=== PATIENT | female | born 1940 | race Caucasian/White ===

== ENCOUNTER → 2023-12-15 06:19 | Outpatient (REF) | payer MEDICARE, OTHER, SELFPAY ==
[2023-12-15 07:22] LABS: Erythrocyte Sed Rate 2 mm/hour (0-20)
[2023-12-15 07:29] LABS: C-Reactive Protein < 5.00 mg/L (0.0-10.00)
[2023-12-15 08:08] LABS: TSH Reflex To Free T4 1.16 uIU/ml (0.47-4.68)
[2023-12-15 08:43] LABS: Folate > 20.0 ng/ml (2.76-20); Vitamin B12 > 1000 pg/ml (239-931)
[2023-12-17 14:16] LABS: ds-DNA Ab, IgG Reflex To Titer 5 IU (0-24)
[2023-12-17 23:56] LABS: T. pallidum Ab By TP-PA Non Reactive (Non Reactive)
== END ==
LOC: REG 06:19
PROVIDERS: ATTENDING PHYSICIAN Psychiatry & Neurology Neurology; FAMILY PHYSICIAN Internal Medicine
DX: R20.9 Unspecified disturbances of skin sensation (principal)
CPT/HCPCS: 36415; 82607; 82746; 84443; 85652; 86140; 86225; 86780

== ENCOUNTER → 2024-01-05 10:45 | Outpatient (REF) | payer MEDICARE, OTHER, SELFPAY | LOC: RAD 10:45 | PROVIDERS: ATTENDING PHYSICIAN Psychiatry & Neurology Neurology; FAMILY PHYSICIAN Internal Medicine | DX: I63.9 Cerebral infarction, unspecified (principal); I87.2 Venous insufficiency (chronic) (peripheral) | CPT/HCPCS: 93970 ==

== ENCOUNTER → 2024-01-29 07:12 | Outpatient (REF) | payer MEDICARE, OTHER, SELFPAY ==
[2024-01-29 08:48] LABS: % Basophils 0.7 % (0-2); % Immature Granulocytes 0.3 % (0-0.5); % Lymphocytes 26.4 % (20.5-51.1); % Neutrophils 58.6 % (42.2-75.2); Absolute Basophils 0.1 10^3/uL (0-0.2); Absolute Eosinophils 0.3 10^3/uL (0-0.7); Absolute Lymphocytes 1.8 10^3/uL (1.2-3.4); Absolute Monocytes 0.6 10^3/uL (0.1-0.6); Hematocrit 37.9 % (37.0-47.0); Hemoglobin 11.7 g/dL (12.0-16.0); Mean Corp Hgb Conc. 30.9 g/dL (33.0-37.0); Mean Corpuscular Volume 84.2 fL (81.0-99.0); Nucleated Red Blood Cells % 0 %; Platelet Count 251 10^3/uL (130-400); Red Cell Dist. Width 14.3 % (11.5-14.5); White Blood Cell Count 6.8 10^3/uL (4.8-10.8)
[2024-01-29 09:43] LABS: ALT (SGPT) 19 U/L (0-35); AST (SGOT) 28 U/L (14-36); Albumin 4.2 g/dl (3.5-5.0); Alkaline Phosphatase 96 U/L (38-126); Blood Urea Nitrogen 38 mg/dl (7-17); Calcium 10.1 mg/dl (8.4-10.2); Carbon Dioxide 24 mmol/L (22-30); Chloride 110 mmol/L (98-107); Glucose 99 mg/dl (70-99); Sodium 138 mmol/L (135-145); Total Bilirubin 0.7 mg/dl (0.2-1.3); Total Cholesterol 167 mg/dl (50-199); Total Protein 6.7 g/dl (6.3-8.2); Triglyceride 91 mg/dl (10-149); Very Low Density Lipoprotein 18 mg/dl (0-30); eGFR 49.86
[2024-01-29 09:51] LABS: TSH Reflex To Free T4 1.27 uIU/ml (0.47-4.68)
[2024-01-29 11:42] LABS: HDL Cholesterol 87 mg/dl; LDL Cholesterol, Calculated 62 mg/dl
== END ==
LOC: REG 07:12
PROVIDERS: ATTENDING PHYSICIAN Internal Medicine
DX: I10 Essential (primary) hypertension (principal); E78.2 Mixed hyperlipidemia; E03.9 Hypothyroidism, unspecified; E56.9 Vitamin deficiency, unspecified
CPT/HCPCS: 36415; 80053; 80061; 84443; 85025

== ENCOUNTER → 2024-03-12 15:45 | Outpatient (REF) | payer MEDICARE, OTHER, SELFPAY ==
[2024-03-12 17:10] LABS: Iron 48 ug/dl (37-170)
[2024-03-12 17:48] LABS: Ferritin 47.3 ng/ml (11.1-264.0)
== END ==
LOC: REG 15:45
PROVIDERS: ATTENDING PHYSICIAN Psychiatry & Neurology Neurology; FAMILY PHYSICIAN Family Medicine
DX: E61.1 Iron deficiency (principal); D64.9 Anemia, unspecified
CPT/HCPCS: 36415; 82728; 83540

== ENCOUNTER 2024-03-15 13:19 | Outpatient (RCR) | payer MEDICARE, OTHER, SELFPAY ==
[2024-03-15 13:52] VITALS: BP 134/54
[2024-03-15] MEDS: INJECTAFER 265 MG IV (14:06)
[2024-03-15 15:10] VITALS: BP 157/61
== END 2024-03-16 08:33 | disposition home or self-care (01) ==
LOC: OID 13:19
PROVIDERS: ATTENDING PHYSICIAN Psychiatry & Neurology Neurology; FAMILY PHYSICIAN Internal Medicine
DX: R20.9 Unspecified disturbances of skin sensation (principal); I63.9 Cerebral infarction, unspecified; R79.0 Abnormal level of blood mineral
CPT/HCPCS: 96365; J1439

== ENCOUNTER → 2024-05-04 06:17 | Outpatient (REF) | payer MEDICARE, OTHER, SELFPAY ==
[2024-05-04 07:17] LABS: % Basophils 0.4 % (0-2); % Immature Granulocytes 1.2 % (0-0.5); % Lymphocytes 21.8 % (20.5-51.1); % Neutrophils 66.6 % (42.2-75.2); Absolute Basophils 0.1 10^3/uL (0-0.2); Absolute Eosinophils 0.2 10^3/uL (0-0.7); Absolute Immature Granulocytes 0.1 10^3/uL (0-0.05); Absolute Lymphocytes 2.6 10^3/uL (1.2-3.4); Absolute Neutrophils 7.9 10^3/uL (1.4-6.5); Hematocrit 49.3 % (37.0-47.0); Hemoglobin 16.4 g/dL (12.0-16.0); Mean Corp Hgb Conc. 33.3 g/dL (33.0-37.0); Mean Corpuscular Hgb 28.2 pg (27.0-31.0); Mean Corpuscular Volume 84.9 fL (81.0-99.0); Mean Platelet Volume 10.3 fL (7.4-10.4); Nucleated Red Blood Cells % 0 %; Platelet Count 203 10^3/uL (130-400); Red Blood Cell Count 5.81 10^6/uL (4.20-5.40); Red Cell Dist. Width 21.7 % (11.5-14.5); White Blood Cell Count 11.8 10^3/uL (4.8-10.8)
[2024-05-04 07:45] LABS: ALT (SGPT) 22 U/L (0-35); AST (SGOT) 27 U/L (14-36); Albumin 4.9 g/dl (3.5-5.0); Alkaline Phosphatase 107 U/L (38-126); Blood Urea Nitrogen 47 mg/dl (7-17); Calcium 10.8 mg/dl (8.4-10.2); Carbon Dioxide 27 mmol/L (22-30); Chloride 103 mmol/L (98-107); Glucose 97 mg/dl (70-99); Iron 185 ug/dl (37-170); Potassium 5.8 mmol/L (3.5-5.1); Sodium 139 mmol/L (135-145); Total Bilirubin 1.7 mg/dl (0.2-1.3); Total Cholesterol 186 mg/dl (50-199); Total Protein 7.7 g/dl (6.3-8.2); Triglyceride 95 mg/dl (10-149); Very Low Density Lipoprotein 19 mg/dl (0-30); eGFR 37.33
[2024-05-04 08:00] LABS: HDL Cholesterol 112 mg/dl; LDL Cholesterol, Calculated 55 mg/dl
== END ==
LOC: REG 06:17
PROVIDERS: ATTENDING PHYSICIAN Nurse Practitioner Family; REFERRING PHYSICIAN Internal Medicine Gastroenterology
DX: M25.559 Pain in unspecified hip (principal); M25.569 Pain in unspecified knee; Z76.89 Persons encountering health services in other specified circumstances; E78.00 Pure hypercholesterolemia, unspecified; E66.1 Drug-induced obesity; Z68.35 Body mass index [BMI] 35.0-35.9, adult; Z86.73 Personal history of transient ischemic attack (TIA), and cerebral infarction without residual deficits; M53.3 Sacrococcygeal disorders, not elsewhere classified; M47.816 Spondylosis without myelopathy or radiculopathy, lumbar region; K21.9 Gastro-esophageal reflux disease without esophagitis; I10 Essential (primary) hypertension; E61.1 Iron deficiency; D64.9 Anemia, unspecified; E55.9 Vitamin D deficiency, unspecified
CPT/HCPCS: 36415; 80053; 80061; 82728; 83540; 84443; 85025

== ENCOUNTER 2024-05-22 17:05 | Inpatient (IN) | payer MEDICARE, OTHER, SELFPAY ==
[2024-05-22] VITALS (8 sets, daily range): BP systolic 116–176; BP diastolic 54–89; BMI 34.5
[2024-05-22 12:51] LABS: % Basophils 0.4 % (0-2); % Eosinophils 3.7 % (0-6); % Immature Granulocytes 0.7 % (0-0.5); % Lymphocytes 27.8 % (20.5-51.1); % Monocytes 8.3 % (1.7-9.3); % Neutrophils 59.1 % (42.2-75.2); Absolute Eosinophils 0.3 10^3/uL (0-0.7); Absolute Immature Granulocytes 0.1 10^3/uL (0-0.05); Absolute Lymphocytes 2.1 10^3/uL (1.2-3.4); Absolute Monocytes 0.6 10^3/uL (0.1-0.6); Absolute Neutrophils 4.5 10^3/uL (1.4-6.5); Hematocrit 39.9 % (37.0-47.0); Hemoglobin 13.5 g/dL (12.0-16.0); Mean Corp Hgb Conc. 33.8 g/dL (33.0-37.0); Mean Corpuscular Hgb 29.1 pg (27.0-31.0); Nucleated Red Blood Cells % 0 %; Platelet Count 194 10^3/uL (130-400); Red Blood Cell Count 4.64 10^6/uL (4.20-5.40); Red Cell Dist. Width 19.9 % (11.5-14.5); White Blood Cell Count 7.6 10^3/uL (4.8-10.8)
[2024-05-22 13:07] LABS: ALT (SGPT) 24 U/L (0-35); AST (SGOT) 27 U/L (14-36); Albumin 3.9 g/dl (3.5-5.0); Alkaline Phosphatase 90 U/L (38-126); Blood Urea Nitrogen 27 mg/dl (7-17); Calcium 9.9 mg/dl (8.4-10.2); Carbon Dioxide 27 mmol/L (22-30); Chloride 106 mmol/L (98-107); Estimated Creatinine Clearance 48 ml/min; Glucose 93 mg/dl (70-99); Sodium 137 mmol/L (135-145); Total Bilirubin 0.8 mg/dl (0.2-1.3); Total Protein 6.2 g/dl (6.3-8.2)
[2024-05-22 13:18] LABS: Troponin I 0.024 ng/ml
--- NOTE | 2024-05-22 14:18 | ED.GENMED ---
History of Present Illness
General
Chief Complaint: Chest Pain
Source: patient
Exam Limitations: none
Time Seen by Provider: 05/22/24 12:40
Nursing documentation reviewed up to this point in time: agreed with
History of Present Illness
History of Present Illness:
The patient is an 83-year-old female with a past medical history of CVA and hyperlipidemia who comes in with complaints of sudden onset of left-sided chest pain while watching a movie at around 11:00 today. Patient denies any radiation of pain into
the back or down the arm. She reports that 911 was called and she was given nitroglycerin and aspirin and now her pain is gone completely. She denies any reproducible chest pain with breathing. She denies leg pain and leg swelling. She denies a
history of PE and DVT. She denies cough. Patient reports she had similar pain 3 evenings ago, in the middle the night, but it went away on its own.
Past History
Past History
ED Past Medical History: GERD, Hypercholesterolemia and Other (herpes simplex on Valcyclovir)
ED Past Surgical History: Appendectomy, Gynecological (hysterectomy), Orthopedic (L5-S1 intralaminar epidural steroids, replacements bilaterally) and Other (uvulectomy)
Social History
Tobacco: Non-smoker
Alcohol: Other
Drug: None
Personal: Other
Living: other
Employment: Other
Family History
Family History: CAD
Review of Systems
Review of Systems
Allergies reviewed?: Yes
All Other Systems: ROS reviewed and negative except as documented in HPI and ROS
Constitutional: Reports no symptoms
EENT: Reports no symptoms
Respiratory: Reports no symptoms
Cardiac: Reports chest pain
ABD/GI: Reports no symptoms
: Reports no symptoms
Musculoskeletal: Reports no symptoms
Skin: Reports no symptoms
Neurological: Reports no symptoms
Endocrine: Reports no symptoms
Hematologic/Lymphatic: Reports no symptoms
Psychiatric: Reports no symptoms
Phy Exam
Physical Exam
Physical Exam:
Physical Exam
General: no apparent distress, not acutely ill, well and comfortable appearing
Neck: supple. no meningeal signs. normal psoterior pharynx
Heart: s1/s2 regular rate and rhythm, no murmur. equal radial pulses.
Lungs: no acute respiratory distress. clear bilaterally
Abdomen: normal bowel sounds. not tender. no CVAT. No pulsatile mass
Neuro: alert and oriented. no focal neurological deficits
Skin: no rash
Psychiatric: well kept. interactive and cooperative
Extremities: no edema. no calf tenderness. negative homans. good distal pulses
Scores
Heart Score for Chest Pain Patients
STEMI patient?: Not applicable
Course
Orders/Labs/Results
Orders:
Orders
05/22/24 12:29
EKG [Electrocardiogram (*1)] Stat
Reason for Study: Chest Pain
EKG- Treatment ONCE
05/22/24 12:44
Complete Blood Count/With Diff Urgent
Comprehensive Metabolic Panel Urgent
Troponin I Urgent
05/22/24 14:45
Troponin I Urgent
05/22/24 Dinner
Cholesterol Lowering
At Your Request: Full Participation
Cholesterol Lowering: Sodium, 2 Gram
05/22/24 15:39
Aspirin Chewable [Low Strength Aspirin] 324 mg PO NOW STA
Nitroglycerin Ointment [Nitro-Bid] 0.5 inch TOPICAL NOW STA
05/22/24 16:24
CARDIOLOGY CONSULT Routine
Consulting Provider: Srinivas Correa
Was physician already notified: Yes
Reason for consult: acs elevated trop
05/22/24 16:25
Heparin 4,000 units IV NOW STA
Metoprolol Xl [Toprol Xl] 25 mg PO NOW STA
05/22/24 16:26
Admit/Transfer Patient As Directed
Co-Sign Provider:
Level of Care: Inpatient admission
Assign to:: IVU
Physician / Group: shaina burns
Diagnosis: cp concern acs
Reason for Hospitalization: cp concern acs
Expected length of stay greater than two midnights?: Yes
ELOS- Estimated Length of Stay in days: 4
I certify the patient meets the requirements for IP care: Yes
Code Status As Directed
Resuscitation Status: Full Code
05/22/24 16:30
Heparin 46922 Units/250 ml 25,000 units in 250 ml IV PER PROTOCOL
Weight to be used for heparin protocol in kilograms (kg):: 94
Protocol:: Cardiac Tx/Acute Coronary
PTT Goal Range to be used:: PTT 73 to 111 seconds
Order type:: Initial
INITIAL Infusion Dose (UNITS/KG/hr) & then follow protocol:: 12 units/kg/hr
Infusion Dose in UNITS/hr & then follow protocol (UNITS/hr):: 1,000
INFUSION RATE in mL/hr & then follow protocol (mL/hr):: 10
PTT less than or equal to 64 seconds:: Increase rate by 200 units/hr (+ 2 mL/hr)
PTT 64.1 to 72.9 seconds:: Increase rate by 100 units/hr (+ 1 mL/hr)
PTT 73 to 111 seconds:: Target Range. No change in rate.
PTT 111.1 to 130.9 seconds:: Decrease rate by 100 units/hr (- 1 mL/hr)
PTT 131 to 199.9 seconds:: HOLD for 1 hr. Then decrease rate by 200 units/hr (- 2 mL/hr)
PTT greater than or equal to 200 seconds:: HOLD for 2 hrs & Notify Provider. Then decrease by 200 units/hr (-
2 mL/hr)
Lab follow-up:: Each change, PTT q6h until 2 consecutive are therapeutic. Then PTT
daily.
PRN Pain Medication Management As Directed
May give lesser potent ordered pain med per pt: Yes
preference::
Protocol:: Medication orders for pain may be administered in a
manner that supports deferring to patient preference
when the pt is:
- Requesting an ordered lesser potent pain medication.
Least to most potent pain medications are defined
as: acetaminophen < NSAID < tramadol < opioids
(morphine, oxycodone, hydromorphone).
- Requesting a lesser dose of the same medication IF
ORDERED.
- Requesting a less intrusive route of administration
if both routes are prescribed by the provider (PO <
IV).
05/22/24 16:45
Complete Blood Count/No Diff Urgent
Comment: Obtain baseline before beginning heparin infusion if not already collected
PTT Urgent
Comment: Obtain baseline before beginning heparin infusion if not already collected
05/22/24 18:44
Acetaminophen [Tylenol] 650 mg PO Q4HPRN PRN
05/22/24 18:44
VTE Contraindication Routine
VTE Mechanical Device Contraindication: Medical Contraindication
Pharmocologic Contraindication: Medical Contraindication
Comment: pt on iv heparin
Activity As Directed
Activity Level: As Tolerated
Intake/ Output As Directed
Frequency: Per unit guidelines
Vital Signs As Directed
Frequency: Per unit guidelines
Weight As Directed
Frequency: Daily
Ot Eval And Treat Routine
Pt Eval And Treat Routine
Activity Level: As Tolerated
05/22/24 19:00
Rosuvastatin Calcium [Crestor] 20 mg PO QPM
05/22/24 20:30
EKG [Electrocardiogram (*1)] Urgent
Reason for Study: Chest Pain
Other Reason for Exam: hx elevated troponin
05/22/24 22:14
Troponin I Q6H
05/23/24 03:00
EKG [Electrocardiogram (*1)] Urgent
Reason for Study: Chest Pain
Other Reason for Exam: elevated trop
05/23/24 04:30
Cardiovascular Evaluation IN AM
Complete Blood Count/With Diff IN AM
Comprehensive Metabolic Panel IN AM
Magnesium IN AM
Troponin I Q6H
05/23/24 08:00
Aspirin Low Dose EC [Aspir Low (Enteric Coated)] 81 mg PO DAILY
Metoprolol Xl [Toprol Xl] 25 mg PO DAILY
Pantoprazole [Protonix] 40 mg PO DAILY
05/24/24 04:32
Complete Blood Count/With Diff IN AM
Comprehensive Metabolic Panel IN AM
05/25/24 06:00
Complete Blood Count/With Diff IN AM
Comprehensive Metabolic Panel IN AM
Abnormal Lab Results
05/22/24 05/22/24 05/22/24
12:44 14:45 16:45
RDW 19.9 H % 19.7 H %
(11.5-14.5) (11.5-14.5)
Abs Immat Gran (auto) 0.1 H 10^3/uL
(0-0.05)
Immature Gran % 0.7 H %
(0-0.5)
BUN 27 H mg/dl
(7-17)
Troponin I 0.075 H* D ng/ml
Total Protein 6.2 L g/dl
(6.3-8.2)
05/22/24 16:45
05/22/24 12:44
Vital Signs
Initial and Last Documented VS:
Initial Vital Signs
Temp Pulse Resp Pulse Ox
98.0 F 77 18 96
05/22/24 12:34 05/22/24 12:34 05/22/24 12:34 05/22/24 12:34
Last Documented Vital Signs
Temp Pulse Resp BP Pulse Ox
98.2 F 66 16 155/69 98
05/24/24 23:15 05/24/24 23:15 05/24/24 23:15 05/24/24 23:15 05/24/24 23:15
MDM/Problems Addressed
Differential Diagnosis Includes:
Acute coronary disease, PE, aortic dissection, GERD
MDM/Problems Addressed:
Patient complains of acute chest pain
Chronic conditions affecting care:
Hyperlipidemia
Acute Exacerbation and/or Progression of Chronic Illness:
Hyperlipidemia
*Pulse Oximetry
Patient hypoxic: no
*EKG
Interpreted by ED Provider?: Yes
Interpretation: normal
Comparison EKG: no changes
Rate: normal
[place]: normal axis
Interval: normal interval
QRS Pattern: normal QRS
Ischemia: no ischemia
*Educational Administrator Interpretation
Rate: normal
Interpretation: normal
Rhythm: sinus
*Critical Care Note
Total Time (30-74mins, 75-104mins- exclusive of procedures): Not Applicable
ED Attending Note
-
Portions of this chart may have been created with voice recognition software.� Occasional wrong word or��sound alike� substitutions may have occurred due to the inherent limitations of voice recognition software.
Discharge Plan
Departure
Patient Disposition: Admit
Date of Disposition: 05/22/24
Time of Disposition: 15:33
Admit to: Telemetry
Presentation/result/management discussed w/ accepting MD/DO: Hospitalist
Patient with high blood pressure during this ER visit?: Yes
Condition: Good
Discharge Problem:
Chest pain in adult, Elevated troponin
Interventions
Interventions:
*Risk Screen - Suicide Last Done: 05/22/24 12:36
*General Assessment Last Done: 05/22/24 12:34
*Neglect/Abuse Screening Last Done: 05/22/24 12:36
ED- Fall Risk Assessment Last Done: 05/22/24 12:38
*ED COVID-19 Vaccine History Last Done: 05/22/24 12:34
*Nursing Disposition Last Done: 05/22/24 18:25
ED- Cardiac Assessment Last Done: 05/22/24 12:37
Discharge Date and Time
Discharge Date/Time: 05/22/24 18:26
[2024-05-22 15:34] LABS: Troponin I 0.075 ng/ml
--- NOTE | 2024-05-22 15:50 | HPS.HSE ---
Addendum entered and electronically signed by Mora Vasquez MD 05/22/24 17:19:
I saw and examined the patient.
The PRIME BROKER or PA's note was reviewed and I agree with the note.
Comment:
83F from [facility] past medical history HLD GERD aortic regurg, L5-S1 epidural injections, obesity p/w chest pain left side that started suddenly while pt was at rest watching TV. Pt had a similar episode a few days ago that
eventually resolved w/ spontaneously. Contacted EMS, pt was treated w/ ASA nitro en route, chest pain subsequently resolved. Mildly hypertensive vital signs otherwise stable. EKG NSR. Troponin trended up 0.075. Pt has family hx heart disease w/
both parents passing in their late 70s to early 80s as a result.
Physical Exam
General: No pallor, cyanosis, or jaundice.
HEENT: Throat clear. PERRLA Normocephalic atraumatic
NECK: Supple. No JVD Carotid Bruits
RESPIRATORY: Lungs clear to auscultation. No crackles wheezes stridor
CVS: S1, S2 normal. RRR. No murmur, rub or gallop.
ABDOMEN: Soft, non-tender. No distension. BS+/normal.
EXTREMITIES: No peripheral cyanosis or edema.
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 No focal deficits.
#Chest Pain Possible ACS
IVU admit
Cardio eval
hep gtt
metoprolol
trend troponin
Original Note:
Family Physician
-
Family Physician: MAJOR Jarrett
Chief Complaint
-
left sided cp
History of Present Illness
83-year-old female from home who states while watching a movie at 11 PM today she did had sudden onset of left-sided Under her left breast type in nature chest pain but denies any radiation or diaphoresis. She reports she was given nitroglycerin
and aspirin by EMS with resolution of her chest pain. She does report having a similar episode 3 evenings ago in the middle of the night that went away After taking 325 mg of aspirin. She denies current chest pain, headache, sore throat, fever,
chills, shortness of breath, cough, abdominal pain, nausea, vomiting, diarrhea, urinary symptoms. She has past medical history of HLD, GERD, aortic regurg cardiac murmur herpes simplex in past on valacyclovir, L5-S1 epidural injections, obesity
Medical History
Past Medical History
Past Medical History: Reports Other
Additional Past Medical History:
HLD
GERD
aortic regurg cardiac murmur
herpes simplex on valacyclovir,
L5-S1 epidural injections
obesity
Past Surgical History: Reports Other
Additional Past Surgical History:
Uvulectomy,
Appendectomy
L5-S1 epidural injections
Social History
Tobacco: Non-smoker
Alcohol: Occasional (1 martini 3 times week)
Drug: None
Personal: Single
Living: Alone
Employment: Retired
Family History
Family History: Other (mother cad during cabg age 81, father copd, cad age 72 brother age 51? cardiac rare cancer)
Allergies / Home Medications
Allergies reflects when Allergies were last updated in [employer].
Home Medications with original date entered in [employer]
Allergy/Medication List:
Allergies
Allergy/AdvReac Type Severity Reaction Status Date / Time
adhesive Allergy Rash Verified 03/15/24 14:10
latex Allergy Rash Verified 03/15/24 14:10
penicillin V Allergy Rash - 10 Verified 03/15/24 14:10
years ago
Penicillins Allergy Rash - 10 Verified 03/15/24 14:10
years ago
Home Medications
omeprazole 40 mg capsule,delayed release 40 mg PO DAILY 09/15/15
cholecalciferol (vitamin D3) 25 mcg (1,000 unit) tablet 1,000 units PO DAILY 08/31/19
zinc sulfate 50 mg zinc (220 mg) capsule 220 mg PO DAILY 08/31/19
alirocumab 75 mg/mL subcutaneous pen injector (Praluent Pen) 75 mg SC Q14D #1 mL 06/04/22
polyethylene glycol 3350 17 gram oral powder packet 17 grams PO HS ##1 06/04/22
ascorbic acid (vitamin C) 500 mg tablet (Vitamin C) 500 mg PO DAILY 03/15/24
ashwagandha extract 120 mg capsule 120 mg PO 03/15/24
docusate sodium 100 mg capsule 100 mg PO BID PRN Constipation 03/15/24
vitamin B complex 1 cap PO DAILY 03/15/24
Review of Systems
-
History Source: Patient
A 12 point ROS was completed and negative except as noted: Yes
Constitutional: Denies Fever, Fatigue or Chills
EENT: Denies Sore Throat or Runny Nose
Respiratory: Denies Cough or Trouble Breathing
Cardiac: Reports Chest Pain (under left breast); Denies Diaphoresis, Palpitations or Syncope
Abdomen/GI: Denies Abdominal Pain, Nausea, Vomiting, Diarrhea, Constipated, Bloody Stools or Black Stools
: Denies Dysuria, Frequency, Flank Pain, Incontinence, Difficulty Voiding or Urgency
Musculoskeletal: Denies Joint Pain or Edema
Skin: Reports Other (chronic skin scab from skin bx in february by derm was neg for cancer, chronic vericose veins); Denies Itching or Rash
Neurological: Denies Dizzy, Headache or Weakness
Endocrine: Reports No Symptoms
Hematologic/Lymphatic: Reports No Symptoms
Psych: Reports Calm
Physical Exam
Vital Signs
Vital Signs
Temp Pulse Resp BP Pulse Ox
98.0 F 72 18 165/80 94
05/22/24 12:34 05/22/24 14:30 05/22/24 12:34 05/22/24 14:00 05/22/24 14:30
Physical Exam
General: Comfortable, Conversant and Obese; No Pain or Fever
HEENT: NormoCephalic, Anicteric, Moist mucous membranes, [place] Conjunctivae and No Ptosis
Respiratory: Clear; No Wheezes, Rales or Rhonchi
Cardiac: S1/S2 and Murmur (2/6 systolic); No Rub, Gallop or Peripheral Edema
GI: Soft, Non Tender, Non Distended, Normal Bowel Sounds and No Hepatosplenomegaly
Rectal: Deferred by Provider
Genito-urinary: Deferred by me
Musculoskeletal: No Clubbing, No Cyanosis and No Edema
Skin: Ulcers (chronic skin scab from skin bx in february by derm was neg for cancer, chronic vericose veins)
Neuro: AO x 3, No Motor Deficits, Nonfocal/grossly intact, Cranial Nerves Intact and No Sensory Deficits; No Slurred Speech, Facial Droop or Tremors
Psych: Calm
Laboratory Results
-
05/22/24 12:44
05/22/24 12:44
Laboratory Results
Total Bilirubin 0.8 mg/dl (0.2-1.3) 05/22/24 12:44
AST 27 U/L (14-36) 05/22/24 12:44
ALT 24 U/L (0-35) 05/22/24 12:44
Alkaline Phosphatase 90 U/L (38-126) 05/22/24 12:44
Troponin I 0.075 ng/ml H* D 05/22/24 14:45
Impression/Plan
-
Impression/plan:
Inpatient IVU
# CP concern ACS
-Troponin 0.075, will trend troponins and EKG
-Patient given nitroglycerin and aspirin with resolution of chest pain by EMS
-Consult [facility] cardiology- discussesd with Dr segovia
-Add aspirin 81 mg daily
- start iv Heparin gtt
-start Metoprolol XL 25 mg daily
- start Crestor 20 mg hs -Hx of leg cramps with Lipitor
EKG: NSR 79 bpm, QTc 426 MS otherwise normal
2D echo 05/30/2022: EF 55 to 60%, mild septal hypertrophy, no wall abnormalities, mild aortic regurg no significant change from August 2019
#Known cardiac murmur hx aortic regurg
- check 2D echo
#GERD
-Continue omeprazole 40 mg daily
#HLD
Check lipid profile
Patient takes Praluent pen 75 mg subcu q. 14 days and krill oil
#Hx of skin bx right leg may benign with chronic scab likley delayed healing vasc disease / vericose veins
bx done by Dr clemente
- will apply bacitracin bid with bandaid
#Obesity due to excess calorie consumption - bmi 34.5
affects all aspects care
wt loss recommended with low fat diet
dvt proph
Iv heparin gtt
Full code donny Nobles is her emergency contact
[2024-05-22 16:58] LABS: Hematocrit 38.7 % (37.0-47.0); Hemoglobin 13.2 g/dL (12.0-16.0); Mean Corp Hgb Conc. 34.1 g/dL (33.0-37.0); Mean Corpuscular Hgb 29.9 pg (27.0-31.0); Mean Corpuscular Volume 87.8 fL (81.0-99.0); Mean Platelet Volume 10.3 fL (7.4-10.4); Platelet Count 179 10^3/uL (130-400); Red Blood Cell Count 4.41 10^6/uL (4.20-5.40); Red Cell Dist. Width 19.7 % (11.5-14.5)
[2024-05-22] MEDS: HEPARIN 4000 UNITS IV (17:02)
[2024-05-22] MEDS: HEPARIN 25000 UNITS/250 ML IV (17:04)
[2024-05-22] MEDS: TOPROL XL 25 MG PO (17:04)
[2024-05-22 17:08] LABS: APTT 27.8 Sec (23.4-35.0)
[2024-05-22] MEDS: CRESTOR 20 MG PO (21:55)
[2024-05-22] MEDS: MIRALAX 17 GRAMS PO (21:55)
[2024-05-22 22:44] LABS: Troponin I 0.188 ng/ml
[2024-05-23] VITALS (9 sets, daily range): BP systolic 103–159; BP diastolic 62–87; PULSE 79; BMI 34.2
--- NOTE | 2024-05-23 00:21 | PTCARENOTE ---
Pt arrived at change of shift- ambulating into room as a self. admission and assessment completed as documented. POC discussed- pt verbalized understanding. Heparin gtt running as documented. SR w/1st degree on monitor. HR in the 60s to 90s. No CP
complaints at this time.
[2024-05-23 04:48] LABS: % Basophils 0.3 % (0-2); % Eosinophils 4.7 % (0-6); % Immature Granulocytes 0.8 % (0-0.5); % Lymphocytes 39.1 % (20.5-51.1); % Monocytes 9.1 % (1.7-9.3); Absolute Eosinophils 0.3 10^3/uL (0-0.7); Absolute Immature Granulocytes 0.1 10^3/uL (0-0.05); Absolute Lymphocytes 2.3 10^3/uL (1.2-3.4); Absolute Monocytes 0.5 10^3/uL (0.1-0.6); Absolute Neutrophils 2.7 10^3/uL (1.4-6.5); Hematocrit 37.5 % (37.0-47.0); Mean Corp Hgb Conc. 34.7 g/dL (33.0-37.0); Mean Corpuscular Hgb 29.1 pg (27.0-31.0); Mean Corpuscular Volume 83.9 fL (81.0-99.0); Nucleated Red Blood Cells % 0 %; Platelet Count 172 10^3/uL (130-400); Red Blood Cell Count 4.47 10^6/uL (4.20-5.40); Red Cell Dist. Width 19.9 % (11.5-14.5)
[2024-05-23 05:03] LABS: APTT 84.4 Sec (23.4-35.0)
[2024-05-23 05:14] LABS: ALT (SGPT) 24 U/L (0-35); AST (SGOT) 27 U/L (14-36); Albumin 3.6 g/dl (3.5-5.0); Alkaline Phosphatase 80 U/L (38-126); Blood Urea Nitrogen 20 mg/dl (7-17); Calcium 9.8 mg/dl (8.4-10.2); Carbon Dioxide 25 mmol/L (22-30); Chloride 109 mmol/L (98-107); Estimated Creatinine Clearance 54 ml/min; Glucose 90 mg/dl (70-99); HDL Cholesterol 99 mg/dl; LDL Cholesterol, Calculated 47 mg/dl; Magnesium 2.1 mg/dl (1.6-2.3); Sodium 137 mmol/L (135-145); Total Bilirubin 0.9 mg/dl (0.2-1.3); Total Cholesterol 159 mg/dl (50-199); Total Protein 5.9 g/dl (6.3-8.2); Triglyceride 65 mg/dl (10-149); Very Low Density Lipoprotein 13 mg/dl (0-30); eGFR > 60.00
[2024-05-23 05:28] LABS: Troponin I 0.136 ng/ml
--- NOTE | 2024-05-23 07:53 | W.PN.HOSP.TC ---
Today's Communication/Plan
-
Hep gtt ASA statin Metoprolol
NPO after midnight for Cath
ECHO Mon
Assessment / Plan
Assessment / Plan
Physical Exam
General: No pallor, cyanosis, or jaundice.
HEENT: Throat clear. PERRLA Normocephalic atraumatic
NECK: Supple. No JVD Carotid Bruits
RESPIRATORY: Lungs clear to auscultation. No crackles wheezes stridor
CVS: S1, S2 normal. RRR. No murmur, rub or gallop.
ABDOMEN: Soft, non-tender. No distension. BS+/normal.
EXTREMITIES: No peripheral cyanosis or edema.
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 No focal deficits.
83F from [facility] past medical history HLD GERD aortic regurg, L5-S1 epidural injections, obesity p/w chest pain left side that started suddenly while pt was at rest watching TV. Pt had a similar episode a few days ago that
eventually resolved w/ spontaneously. Contacted EMS, pt was treated w/ ASA nitro en route, chest pain subsequently resolved. Mildly hypertensive vital signs otherwise stable. EKG NSR. Troponin trended up 0.075. Pt has family hx heart disease w/
both parents passing in their late 70s to early 80s as a result.
# CP concern ACS
#Known cardiac murmur hx aortic regurg
-Troponin trended to Peak 0.188
-Patient given nitroglycerin and aspirin with resolution of chest pain by EMS
-Cardio eval appreciated cont aspirin, Heparin gtt, Metoprolol, statin, NPO after midnight for Cath Mon 05/24
-ECHO pending
#GERD
-Continue PPI
#HLD
Lipid panel appreciated LDL at goal <70
cont Crestor (hx leg cramps w/ Lipitor
Patient takes Praluent pen 75 mg subcu q. 14 days and krill oil
#Obesity due to excess calorie consumption - bmi 34.5
affects all aspects care
wt loss recommended with low fat diet
dvt proph
Iv heparin gtt
Full Code
I spent a total of 50 minutes with the patient or on the floor. More than 50% of this time involved counseling and coordination of care.
Anticipated Discharge: 24 - 48 hours
Subjective/Interval History
-
Date of Service: May 23, 2024
Seen and examined at bedside in no acute distress sitting up comfortably in chair. Reports overall feeling well. Chest pain since resolved. Denies new acute issues at this time.
Objective Data
-
Labs:
Laboratory Results
05/22/24 05/23/24
22:14 04:30
WBC 6.0
Hgb 13.0
Hct 37.5
Plt Count 172
APTT 91.0 H 84.4 H
Sodium 137
Potassium 4.0
Chloride 109 H
Carbon Dioxide 25
BUN 20 H
Creatinine 0.9
Glucose 90
Calcium 9.8
Total Bilirubin 0.9
AST 27
ALT 24
Alkaline Phosphatase 80
Vital Signs:
Vital Signs
Temp Pulse Resp BP Pulse Ox
98.5 F 65 18 152/74 95
05/23/24 04:31 05/23/24 05:00 05/23/24 04:31 05/23/24 04:27 05/23/24 04:31
--- NOTE | 2024-05-23 08:37 | CON.CAR ---
Addendum entered and electronically signed by Srinivas Correa MD 05/23/24 14:30:
I personally performed a history and physical exam of the patient and discussed management with the resident. I reviewed the resident's note and agree with the documented findings and plan of care HPI/CC.
Briefly, 83-year-old woman with past medical history of hyperlipidemia who presents with chest discomfort found to have elevated troponin consistent with NSTEMI
Patient tells me she was watching a movie on the morning of 810 at her independent living facility when she developed left-sided squeezing type chest discomfort
EMS was called and provided aspirin and sublingual nitroglycerin and her chest discomfort resolved
Initial troponin was undetectable at the emergency department however it did rise and peaked at 0.188
No ischemic changes on serial ECGs
Patient is resting comfortably in the IVU, chest pain-free and hemodynamically stable
Physical exam is unremarkable
Maintaining normal sinus rhythm on telemetry
Continue medical management of ACS with aspirin, high intensity statin, beta-matt and heparin drip
Check transthoracic echocardiogram on Friday
Tentative plan for invasive coronary angiography on 05/24/2024
Original Note:
Consultation
Consultation Request
Date/Time Consultation Requested: 05/23/24
Date/Time Consultation Performed: 05/23/24
Requesting Provider: Maryellen GONSALVES
Performing Provider:
Medical History
-
Chief Complaint: Chest pain
History of Present Illness:
This is a 83 female patient coming from [facility] with PMH of HLD, GERD, aortic regurgitation murmur, HSV presented to the ED with complaints of chest pain that she describes as squeezing in the left side and occurred at rest
while she was watching TV late yesterday morning. This was nonradiating. This pain continued until she was given nitroglycerin and aspirin by EMS. She had a similar episode a few days ago that resolved after she took aspirin. She denies any
palpitations. On admission her EKG showed NSR and troponins were elevated to 0.075.
Past Medical History
Past Medical History: GERD, Hypercholesterolemia and Other (Aortic regurgitation murmur, HSV)
Past Surgical History: Appendectomy and Other (Uvulectomy, L5-S1 epidural injections)
Social History
Tobacco: Non-Smoker
Alcohol: Occasional
Personal: Single
Living: Alone
Employment: Retired
Family History
Family History: Other (mother cad during cabg age 81,father cad age 72)
Allergies / Home Medications
Allergy/AdvReac Type Severity Reaction Status Date / Time
adhesive Allergy Rash Verified 03/15/24 14:10
latex Allergy Rash Verified 03/15/24 14:10
penicillin V Allergy Rash - 10 Verified 03/15/24 14:10
years ago
Penicillins Allergy Rash - 10 Verified 03/15/24 14:10
years ago
�Medication �Instructions �Recorded �Confirmed �Type
omeprazole 40 mg capsule,delayed 40 mg PO DAILY 09/15/15 05/22/24 History
release
cholecalciferol (vitamin D3) 25 1,000 units PO DAILY 08/31/19 05/22/24 History
mcg (1,000 unit) tablet
zinc sulfate 50 mg zinc (220 mg) 220 mg PO DAILY 08/31/19 05/22/24 History
capsule
alirocumab 75 mg/mL subcutaneous 75 mg SC Q14D #1 mL 06/04/22 05/22/24 Rx
pen injector (Praluent Pen)
polyethylene glycol 3350 17 gram 17 grams PO HS ##1 06/04/22 05/22/24 Rx
oral powder packet
ascorbic acid (vitamin C) 500 mg 500 mg PO DAILY 03/15/24 05/22/24 History
tablet (Vitamin C)
docusate sodium 100 mg capsule 100 mg PO BID PRN Constipation 03/15/24 05/22/24 History
vitamin B complex 1 cap PO DAILY 03/15/24 05/22/24 History
krill [id number]-dha-epa 45 mg-45 1 cap PO 05/22/24 History
mg capsule
loratadine 10 mg tablet (Claritin) 10 mg PO DAILY PRN seasonal 05/22/24 05/22/24 History
allergies
magnesium oxide 140 mg capsule 1 mg PO 05/22/24 History
Review of Systems
-
Constitutional: No Symptoms
Respiratory: No Symptoms
Cardiac: No Symptoms
Neurological: No Symptoms
Physical Exam
Vital Signs
Temp Pulse Resp BP Pulse Ox
98.5 F 65 18 152/74 95
05/23/24 04:31 05/23/24 05:00 05/23/24 04:31 05/23/24 04:27 05/23/24 04:31
Lab Results
05/23/24 04:30
05/23/24 04:30
Troponin I 0.136 ng/ml H* D 05/23/24 04:30
Physical Exam
General: No Apparent Distress
HEENT: Normocephalic
Respiratory: Clear
Cardiac: S1/S2 and Regular Rhythm
GI: Soft, Non Tender and Non Distended
Skin: Warm and Dry
Neuro: Awake, Alert and Oriented
Psych: Calm
Impression / Plan
-
Training Representative: Dr. Maria
Impression: is a 83 female patient coming from [facility] independent living with PMH of HLD, GERD, aortic regurgitation murmur, HSV presented to the ED with complaints of chest pain that she describes as squeezing in the left side and occurred at
rest while she was watching TV late at night. This was nonradiating. This pain continued until she was given nitroglycerin and aspirin by EMS. She had a similar episode a few days ago that resolved after she took aspirin. She denies any
palpitations. On admission her EKG showed NSR and troponins were elevated to 0.075.
Assessment:
ACS
Hx aortic regurgitation murmur
GERD
HLD
Echo on 08/2019: LVEF 65%, normal left ventricular wall thickness. Mild aortic regurgitation. Trace tricuspid regurgitation. Right heart pressures could not be determined.
Echo on 05/2022: LVEF 55-60%, normal left ventricular size and systolic function. Mild septal hypertrophy. Thickened, trileaflet aortic valve with adequate leaflet excursion. Mild aortic regurgitation. Estimated pulmonary artery pressure of 35 mmHg
assuming a right atrial pressure of 3 mmHg.
Plan:
� EKG on adm: NSR
- Currently asymptomatic
� Troponin on adm: 0.075-->0.188-->0.136
� Echo ordered and pending for tomorrow
- Pro-BNP and CXR ordered
� Continue ASA, metoprolol 25mg, and Crestor 20mg
- Cath planned for tomorrow
[2024-05-23] MEDS: TOPROL XL 25 MG PO (08:42)
[2024-05-23] MEDS: ASPIR LOW (ENTERIC COATED) 81 MG PO (08:43)
[2024-05-23] MEDS: PROTONIX 40 MG PO (08:43)
[2024-05-23 12:39] LABS: NT-proBNP 319 pg/ml
[2024-05-23] MEDS: HEPARIN 25000 UNITS/250 ML IV (16:41)
[2024-05-23] MEDS: CRESTOR 20 MG PO (17:51)
[2024-05-23] MEDS: MIRALAX 17 GRAMS PO (22:15)
[2024-05-24] VITALS (12 sets, daily range): BP systolic 106–168; BP diastolic 65–132; BMI 33.4
--- NOTE | 2024-05-24 04:21 | PTCARENOTE ---
Rec'd pt at change of shift. Pt on TELE monitor in NSR and VSS. Pt NPO at midnight for heart cath in AM. Pt currently CP free and agreed to report change in CP status to RN immediately. Pt currently has heparin infusion at 1000 units per hour.
Pt resting with call mark in reach.
[2024-05-24] MEDS: TYLENOL 650 MG PO (04:27)
[2024-05-24 04:49] LABS: % Basophils 0.5 % (0-2); % Eosinophils 3.9 % (0-6); % Immature Granulocytes 0.8 % (0-0.5); % Lymphocytes 37.5 % (20.5-51.1); % Monocytes 10.3 % (1.7-9.3); Absolute Eosinophils 0.3 10^3/uL (0-0.7); Absolute Immature Granulocytes 0.1 10^3/uL (0-0.05); Absolute Lymphocytes 2.4 10^3/uL (1.2-3.4); Absolute Monocytes 0.7 10^3/uL (0.1-0.6); Hematocrit 44.1 % (37.0-47.0); Hemoglobin 14.8 g/dL (12.0-16.0); Mean Corp Hgb Conc. 33.6 g/dL (33.0-37.0); Mean Corpuscular Hgb 29.4 pg (27.0-31.0); Mean Corpuscular Volume 87.7 fL (81.0-99.0); Mean Platelet Volume 9.8 fL (7.4-10.4); Nucleated Red Blood Cells % 0 %; Platelet Count 182 10^3/uL (130-400); Red Blood Cell Count 5.03 10^6/uL (4.20-5.40); Red Cell Dist. Width 19.4 % (11.5-14.5); White Blood Cell Count 6.4 10^3/uL (4.8-10.8)
[2024-05-24 05:00] LABS: APTT 81.7 Sec (23.4-35.0)
[2024-05-24 05:13] LABS: ALT (SGPT) 27 U/L (0-35); AST (SGOT) 30 U/L (14-36); Alkaline Phosphatase 83 U/L (38-126); Blood Urea Nitrogen 22 mg/dl (7-17); Calcium 10.2 mg/dl (8.4-10.2); Carbon Dioxide 28 mmol/L (22-30); Chloride 106 mmol/L (98-107); Estimated Creatinine Clearance 48 ml/min; Glucose 97 mg/dl (70-99); Potassium 4.6 mmol/L (3.5-5.1); Sodium 137 mmol/L (135-145); Total Bilirubin 0.9 mg/dl (0.2-1.3); Total Protein 6.6 g/dl (6.3-8.2)
--- NOTE | 2024-05-24 08:15 | PTCARENOTE ---
Assumed care of pt from prev nsg shift; Pt AAOx3 w/no c/o CP or SOB. Pt is mildly agitated at times. Pt w/IV Heparin infusing through patent IV line as ordered. Pt's VS stable w/HR in the 60's & BP 116/70. Pt is SR on telemetry monitoring. Discussed
plan of care w/pt. Pt w/call mark within reach & no addtl needs at this time.
[2024-05-24] MEDS: TOPROL XL 25 MG PO (09:58)
[2024-05-24] MEDS: PROTONIX 40 MG PO (09:58)
[2024-05-24] MEDS: ASPIR LOW (ENTERIC COATED) 81 MG PO (09:58)
--- NOTE | 2024-05-24 12:22 | CM ---
Reviewed chart. Met with Mrs. Florez to review discharge plans. She states prior to admission she resides alone in the independent section of [facility]. She states she has been there for three years. She states prior to admission she was
independent with ambulation and adls. She states she does not have any DME in the home. She states she has a prescription plan and [facility]. She states she does not feel she will need [facility] Services at this time. Medical work-up in
progress. The discharge plan is to return to her independent section at [facility] when medically stable.
--- NOTE | 2024-05-24 12:50 | W.PN.HOSP.TC ---
Today's Communication/Plan
-
IV heparin gtt
Await Cath
cards recs
Assessment / Plan
Assessment / Plan
Physical Exam
General: No pallor, cyanosis, or jaundice.
HEENT: Throat clear. PERRLA Normocephalic atraumatic
NECK: Supple. No JVD Carotid Bruits
RESPIRATORY: Lungs clear to auscultation. No crackles wheezes stridor
CVS: S1, S2 normal. RRR. No murmur, rub or gallop.
ABDOMEN: Soft, non-tender. No distension. BS+/normal.
EXTREMITIES: No peripheral cyanosis or edema.
MICROSOFT BI DEVELOPER: AOx3. No focal deficits.
83F from [facility] past medical history HLD GERD aortic regurg, L5-S1 epidural injections, obesity p/w chest pain left side that started suddenly while pt was at rest watching TV. Pt had a similar episode a few days ago that
eventually resolved w/ spontaneously. Contacted EMS, pt was treated w/ ASA nitro en route, chest pain subsequently resolved. Mildly hypertensive vital signs otherwise stable. EKG NSR. Troponin trended up 0.075. Pt has family hx heart disease w/
both parents passing in their late 70s to early 80s as a result.
# CP concern ACS
#Known cardiac murmur hx aortic regurg
-Troponin trended to Peak 0.188
-Patient given nitroglycerin and aspirin with resolution of chest pain by EMS
-Cardio eval appreciated cont aspirin, Heparin gtt, Metoprolol, statin, NPO for Cath
-ECHO pending
#GERD
-Continue PPI
#HLD
Lipid panel appreciated LDL at goal <70
cont Crestor (hx leg cramps w/ Lipitor
Patient takes Praluent pen 75 mg subcu q. 14 days and krill oil
#Obesity due to excess calorie consumption - bmi 34.5
affects all aspects care
wt loss recommended with low fat diet
dvt proph
Iv heparin gtt
Full Code
Anticipated Discharge: Within 24 hours
Subjective/Interval History
-
Date of Service: May 24, 2024
States of back pain and headache
States took some meds for headache earlier today
Nonradiating back pain
Objective Data
-
Labs:
Laboratory Results
05/24/24
04:32
WBC 6.4
Hgb 14.8
Hct 44.1
Plt Count 182
APTT 81.7 H
Sodium 137
Potassium 4.6
Chloride 106
Carbon Dioxide 28
BUN 22 H
Creatinine 1.0
Glucose 97
Calcium 10.2
Total Bilirubin 0.9
AST 30
ALT 27
Alkaline Phosphatase 83
Vital Signs:
Vital Signs
Temp Pulse Resp BP Pulse Ox
97.6 F 67 20 141/73 94
05/24/24 11:28 05/24/24 11:27 05/24/24 11:28 05/24/24 11:27 05/24/24 11:28
I&O
05/23/24 05/24/24 05/25/24
06:59 06:59 06:59
Intake Total 720 / 720
Balance 720 / 720
--- NOTE | 2024-05-24 15:40 | PTCARENOTE ---
Report given to Erick in the Chipper Operator & pt taken to grass farm laborer in her bed shortly after. Heparin drip stopped as ordered.
[2024-05-24 16:22] LABS: ACT-LR - POC 266 Seconds (116-155)
--- NOTE | 2024-05-24 16:42 | ITS.CL.CATH ---
Railroad Track Inspector - Catheterization
Cardiac Catheterization
Procedure Report:
LEFT HEART CATHETERIZATION
Date of Procedure: May 24, 2024
Referring: Dr. Srinivas Correa
PROCEDURES:
1. Left heart catheterization with coronary and single-plane left ventriculography
2. Hemodynamic assessment of LAD with a [employer] Verrata wire. The iFR measured above the ischemic threshold
INDICATION: This is an 83-year-old female resident of [facility] who presented to [facility] for evaluation of chest discomfort. Serial troponin levels became mildly elevated peaking at 0.188 ng/mL before trending back
towards baseline. She is now referred for coronary angiography.
ACCESS: Right radial artery, 6 Irish sheath
HEMODYNAMICS : (mmHg)
AO (s/d) : 151/75, 109
LV (s/d) : 156/18
LVEDP : 26
CORONARY FINDINGS
DOMINANCE: Right
LEFT MAIN: Normal
LEFT ANTERIOR DESCENDING: The LAD arises normally from the left main running in the anterior interventricular groove. The mid LAD beyond a medium caliber first diagonal branch has a 30% stenosis. The remainder of the LAD has only minor luminal
irregularities.
CIRCUMFLEX: The circumflex is a moderate caliber nondominant vessel. OM1 arises very proximally and has a 30% ostial stenosis. OM 2 is a medium caliber vessel that appears widely patent. The circumflex continues in the AV groove terminating in a
moderate to large size posterolateral branch
RIGHT CORONARY ARTERY: The right coronary artery is a dominant vessel that is widely patent over its course. The PDA is patent. The PDA tapers to a very small caliber vessel distally. The posterolateral branch is widely patent
VENTRICULOGRAPHY: Left ventriculography is performed in the TOBIN projection. The visually estimated ejection fraction is 65% with focal anterolateral hypokinesis
HEMODYNAMIC ASSESSMENT OF THE LAD WITH A [place] VERRATA WIRE: The origin of the left main was cannulated with a 6 Fr JL 4 guide catheter. Intravenous heparin was administered and the ACT was followed during the procedure. Two hundred micrograms
of intracoronary nitroglycerin was given through the guide catheter. A [employer] Verrata wire was advanced to the guide catheter tip and normalized to guide catheter pressure. The Verrata wire was then carefully manipulated across the stenosis in
the mid LAD with the iFR serially measuring above the ischemic threshold at 0.92, 0.92, and 0.92. The Verrata wire wire was then pulled back to the guide catheter where the Pd/Pa measured 0.98 confirming no significant baseline drift
RADIATION SUMMARY: Fluoro Time (min): 7.1, Dose (mGy): 538, DAP (Gy.cm2) : 47.2
Closure Device: TR band
CONCLUSIONS
1. Nonobstructive coronary disease
2. Preserved left ventricular systolic function with an estimated ejection fraction of 65%. Focal anterolateral hypokinesis
RECOMMENDATIONS
1. Aspirin and Plavix for 3-6 months given elevated troponin
2. Discontinue rosuvastatin as she experienced reactions to atorvastatin and rosuvastatin in the past. She is chronically maintained on Pralulent with an LDL of 47 mg/dl
3. Goal directed medical therapy for blood pressure
Copy to: Dr. Yvonne Maria
--- NOTE | 2024-05-24 17:20 | PTCARENOTE ---
Rec'd report from Event Producer & rec'd pt back AAOX3 w/no c/o CP or SOB. Pt c/o some mild nausea, but no vomiting. Pt given basin & alcohol pad to esvin. Nausea resolved quickly. Pt w/R radial band intact w/no signs of bleeding or hematoma. SpO2 on RA
100%. Plan of care discussed & Pt advised of bedrest restrictions post cath. Pt w/call mark within reach & plan of care ongoing.
[2024-05-24] MEDS: PLAVIX 300 MG PO (20:11)
[2024-05-24] MEDS: MIRALAX PO (23:11)
--- NOTE | 2024-05-25 01:30 | PTCARENOTE ---
Rec'd pt at change of shift on TELE monitor in NSR with VSS. Pt AAOx3 with no complaints of discomfort or pain. Pt verbalized understanding of post heart-cath plan of care. Pt rec'd with R radial band on puncture site from cath and taken off per
order (see flowchart). RN removed r band at 22:27 and no bleeding was present. Transparent dressing currently dry, clean, and intact. Pt agreed to report any new pain or bleeding at site. Pt resting with call mark in reach. Plan of care ongoing.
[2024-05-25 02:23] VITALS: BP 133/61
[2024-05-25 03:00] VITALS: BP 133/61; BMI 33.2
[2024-05-25 03:20] LABS: % Basophils 0.7 % (0-2); % Eosinophils 3.4 % (0-6); % Immature Granulocytes 0.5 % (0-0.5); % Lymphocytes 30.9 % (20.5-51.1); % Monocytes 10.6 % (1.7-9.3); % Neutrophils 53.9 % (42.2-75.2); Absolute Eosinophils 0.2 10^3/uL (0-0.7); Absolute Lymphocytes 1.7 10^3/uL (1.2-3.4); Absolute Monocytes 0.6 10^3/uL (0.1-0.6); Hemoglobin 14.1 g/dL (12.0-16.0); Mean Corp Hgb Conc. 34.4 g/dL (33.0-37.0); Mean Corpuscular Hgb 29.9 pg (27.0-31.0); Mean Corpuscular Volume 86.9 fL (81.0-99.0); Mean Platelet Volume 10.1 fL (7.4-10.4); Nucleated Red Blood Cells % 0 %; Platelet Count 168 10^3/uL (130-400); Red Blood Cell Count 4.72 10^6/uL (4.20-5.40); White Blood Cell Count 5.5 10^3/uL (4.8-10.8)
[2024-05-25 03:42] LABS: ALT (SGPT) 24 U/L (0-35); AST (SGOT) 27 U/L (14-36); Albumin 3.8 g/dl (3.5-5.0); Alkaline Phosphatase 79 U/L (38-126); Blood Urea Nitrogen 18 mg/dl (7-17); Carbon Dioxide 24 mmol/L (22-30); Chloride 106 mmol/L (98-107); Estimated Creatinine Clearance 53 ml/min; Glucose 83 mg/dl (70-99); Potassium 4.4 mmol/L (3.5-5.1); Sodium 137 mmol/L (135-145); Total Bilirubin 1.1 mg/dl (0.2-1.3); Total Protein 6.2 g/dl (6.3-8.2); eGFR > 60.00
[2024-05-25 07:51] VITALS: BP 133/68
--- NOTE | 2024-05-25 08:05 | PTCARENOTE ---
Assumed care of pt from prev nsg shift; Pt AAOx3 w/no c/o CP or SOB. Pt is mildly agitated at times. Pt's VS stable w/HR in the 60's-70's & most recent BP 133/68. Pt is SR on telemetry monitoring. Pt's R radial site w/dressing C/D/I & signs or
symptoms of bleeding or hematoma. Discussed plan of care w/pt. Pt anxiously awaiting D/C today. Pt w/call mark within reach & no addtl needs at this time.
--- NOTE | 2024-05-25 08:42 | W.PN.CARDCBS ---
Addendum entered and electronically signed by Benitez Worthy MD 05/25/24 11:58:
Attending addendum: Patient was seen and examined independently. The resident note was reviewed and findings independently confirmed by me. We reviewed the clinical history, laboratory data, assessment and plan together. Coronary angiography on
05/24/2024 without occasion for coronary stent. I would continue dual antiplatelet therapy somewhere between 3 and 6 months. She will resume lipid-lowering with Pralulent. Follow-up has been arranged in our office in 2 to 4 weeks. She will be
scheduled to see Dr. Maria thereafter. She has been instructed to return for change or worsening in symptoms for repeat evaluation.
Original Note:
Today's Communication / Plan
-
Plan for discharge today
Continue ASA, Plavix, metoprolol and Praluent outpatient
Impression / Plan
-
Management Engineer: Dr. Maria
Impression: is a 83 female patient coming from [facility] living with PMH of HLD, GERD, aortic regurgitation murmur, HSV presented to the ED with complaints of chest pain that she describes as squeezing in the left side and occurred at
rest while she was watching TV late at night. This was nonradiating. This pain continued until she was given nitroglycerin and aspirin by EMS. She had a similar episode a few days ago that resolved after she took aspirin. She denies any
palpitations. On admission her EKG showed NSR and troponins were elevated to 0.075.
Assessment:
ACS
Hx aortic regurgitation murmur
GERD
HLD
Echo on 08/2019: LVEF 65%, normal left ventricular wall thickness. Mild aortic regurgitation. Trace tricuspid regurgitation. Right heart pressures could not be determined.
Echo on 05/2022: LVEF 55-60%, normal left ventricular size and systolic function. Mild septal hypertrophy. Thickened, trileaflet aortic valve with adequate leaflet excursion. Mild aortic regurgitation. Estimated pulmonary artery pressure of 35 mmHg
assuming a right atrial pressure of 3 mmHg.
Echo on 05/24/24: Left ventricle: Normal size and function with an estimated ejection fraction of 55-60%. Aortic valve: Mild aortic insufficiency. Tricuspid valve: No tricuspid regurgitation and estimated pulmonary artery systolic pressures could not
be obtained
Plan:
� EKG on adm: NSR
- Currently asymptomatic
� Troponin on adm trended down: 0.075-->0.188-->0.136
- Pro-BNP not elevated, CXR on 05/24 showed no active pulmonary process.
� Continue metoprolol 25mg, and Praluent
- Cath 05/24: Nonobstructive coronary disease,Preserved left ventricular systolic function with an estimated ejection fraction of 65%. Focal anterolateral hypokinesis
- Continue ASA and plavix for 3-6 months
- Can be discharged from cardiology side with outpatient f/u arranged
Progress Note - Management Engineer
Subjective
Date of Service: May 25, 2024
Patient denies any CP, palpitations or headaches today.
Objective
Labs:
05/25/24 02:45
05/25/24 02:45
Labs
Hgb 14.1 g/dL (12.0-16.0) 05/25/24 02:45
Hct 41.0 % (37.0-47.0) 05/25/24 02:45
Plt Count 168 10^3/uL (130-400) 05/25/24 02:45
APTT 81.7 Sec (23.4-35.0) H 05/24/24 04:32
Sodium 137 mmol/L (135-145) 05/25/24 02:45
Potassium 4.4 mmol/L (3.5-5.1) 05/25/24 02:45
BUN 18 mg/dl (7-17) H 05/25/24 02:45
Creatinine 0.9 mg/dL (0.6-1.0) 05/25/24 02:45
Glucose 83 mg/dl (70-99) 05/25/24 02:45
Troponins
05/22/24 05/22/24 05/22/24
12:44 14:45 22:14
Troponin I 0.024 0.075 H* D 0.188 H* D
05/23/24
04:30
Troponin I 0.136 H* D
Vital Signs and I&O:
Vital Signs
Temp Pulse Resp BP Pulse Ox
97.7 F 74 18 133/68 97
05/25/24 07:48 05/25/24 08:00 05/25/24 07:48 05/25/24 07:51 05/25/24 07:51
Vital Signs
Temp Pulse Resp BP Pulse Ox
97.7 F 74 18 133/68 97
05/25/24 07:48 05/25/24 08:00 05/25/24 07:48 05/25/24 07:51 05/25/24 07:51
Intake & Output
05/23/24 05/24/24 05/25/24 05/26/24
06:59 06:59 06:59 06:59
Intake Total 720 / 720 180 / 180
Balance 720 / 720 180 / 180
Physical Exam
Physical Exam
General: No Apparent Distress
HEENT: Normocephalic
Respiratory: Clear to auscultation
Cardiac: S1/S2 and Regular Rhythm
GI: Soft, Non Tender and Non Distended
Skin: Warm and Dry
Neuro: Awake, Alert and Oriented
Psych: Calm
[2024-05-25] MEDS: PROTONIX 40 MG PO (08:46)
[2024-05-25] MEDS: TOPROL XL 25 MG PO (08:46)
[2024-05-25] MEDS: ASPIR LOW (ENTERIC COATED) 81 MG PO (08:46)
[2024-05-25] MEDS: PLAVIX 75 MG PO (08:46)
--- NOTE | 2024-05-25 10:57 | W.PN.HOSP.TC ---
Addendum entered and electronically signed by Markos Benson MD 05/26/24 13:11:
Chest pain likely secondary to musculoskeletal versus GERD versus cardiac
Original Note:
Today's Communication/Plan
-
DC home
Outpatient cardiology follow-up
Assessment / Plan
Assessment / Plan
Physical Exam
General: No pallor, cyanosis, or jaundice.
HEENT: Throat clear. PERRLA Normocephalic atraumatic
NECK: Supple. No JVD Carotid Bruits
RESPIRATORY: Lungs clear to auscultation. No crackles wheezes stridor
CVS: S1, S2 normal. RRR. No murmur, rub or gallop.
ABDOMEN: Soft, non-tender. No distension. BS+/normal.
EXTREMITIES: No peripheral cyanosis or edema. R wrist dressing noted-no hematoma.
HOPPER OPERATOR: AOx3. No focal deficits.
83F from [facility] Independent living past medical history HLD GERD aortic regurg, L5-S1 epidural injections, obesity p/w chest pain left side that started suddenly while pt was at rest watching TV. Pt had a similar episode a few days ago that
eventually resolved w/ spontaneously. Contacted EMS, pt was treated w/ ASA nitro en route, chest pain subsequently resolved. Mildly hypertensive vital signs otherwise stable. EKG NSR. Troponin trended up 0.075. Pt has family hx heart disease w/
both parents passing in their late 70s to early 80s as a result.
# Chest pain
# Elevated troponin likely nonischemic myocardial injury
#Known cardiac murmur hx aortic regurg
-Troponin trended to Peak 0.188
-Patient given nitroglycerin and aspirin with resolution of chest pain by EMS
-Cardio eval appreciated cont aspirin, Metoprolol, statin
-S/p cardiac cath with nonobstructive coronary artery disease. Preserved left ventricular systolic function. EF 65%. Focal anterolateral hypokinesis.
-ECHO echo with EF of 55 to 60%. Normal size and function. Indeterminate diastolic function. Right ventricular normal.
-Plan to continue with dual antiplatelet waiting for 36 months.
-
#GERD
-Continue PPI
#HLD
Lipid panel appreciated LDL at goal <70
DC Crestor
Patient takes Praluent pen 75 mg subcu q. 14 days and krill oil
#Obesity due to excess calorie consumption - bmi 34.5
affects all aspects care
wt loss recommended with low fat diet
dvt proph-SCDs and DC home
Full Code
More than 30 minutes spent in discharge including
Final examination of the patient
Summarizing hospital stay
Instructions for continuing care to all relevant caregivers
Preparation of discharge records, prescriptions, and referral forms
Total time spent (in minutes): 53
Anticipated Discharge: Today
Subjective/Interval History
-
Date of Service: May 25, 2024
no chest pain
denies R wrist or hand pain
Objective Data
-
Labs:
Laboratory Results
05/25/24
02:45
WBC 5.5
Hgb 14.1
Hct 41.0
Plt Count 168
Sodium 137
Potassium 4.4
Chloride 106
Carbon Dioxide 24
BUN 18 H
Creatinine 0.9
Glucose 83
Calcium 10.0
Total Bilirubin 1.1
AST 27
ALT 24
Alkaline Phosphatase 79
Vital Signs:
Vital Signs
Temp Pulse Resp BP Pulse Ox
97.7 F 74 18 133/68 97
05/25/24 07:48 05/25/24 08:00 05/25/24 07:48 05/25/24 07:51 05/25/24 07:51
I&O
05/24/24 05/25/24 05/26/24
06:59 06:59 06:59
Intake Total 720 / 720 180 / 180
Balance 720 / 720 180 / 180
--- NOTE | 2024-05-25 11:05 | W.DCSUMMARY ---
Discharge Summary
Discharge Data
Date of Admission: 05/22/24
Date of Discharge: 05/25/24
-
Pending Results: No
Hospital Course
83F from [facility] Independent living past medical history HLD GERD aortic regurg, L5-S1 epidural injections, obesity p/w chest pain left side that started suddenly while pt was at rest watching TV. Troponin trended to Peak 0.188. Cardiology
evaluated patient. Started on heparin infusion. Started on aspirin beta-matt. Underwent echo with EF of 55 to 60%. Normal size and function. Indeterminate diastolic function. Right ventricular normal. S/p cardiac cath with nonobstructive
coronary artery disease. Preserved left ventricular systolic function. EF 65%. Focal anterolateral hypokinesis. Intervention cardiology recommended aspirin and Plavix for 3 to 6 months. Patient chest pain resolved. Patient be discharged back
to previous living situation with outpatient cardiology follow-up.
Discharge Plan
-
Patient Disposition: Home with Home Care
Discharge Diagnosis/Procedures: Nonischemic myocardial injury
Chest pain
Status post cardiac catherization
Condition: Fair
Diet: Low Cholesterol
Driving Restrictions: No driving for 24 hours
Stand Alone Forms: DC Instructions- Cath/EP Lab
Referrals:
Damari Monte CRNP [Family Provider] - in less than 1 week
Sonali Anton PA-C [Specified Professional Personl] - 06/17/24 11:20 am (Cardiology followup appointment)
Prescriptions:
New
clopidogrel 75 mg Tablet
75 mg PO DAILY 30 Days Qty: 30 0RF
aspirin 81 mg Tablet,Delayed Release (Dr/Ec)
81 mg PO DAILY Qty: 30 0RF
metoprolol succinate 25 mg Tablet Extended Release 24 Hr
25 mg PO DAILY 30 Days Qty: 30 0RF
Continued
omeprazole 40 MG capsule,delayed release(DR/EC)
40 mg PO DAILY
zinc sulfate 220 MG capsule
220 mg PO DAILY
cholecalciferol (vitamin D3) 1,000 UNITS tablet
1,000 units PO DAILY
polyethylene glycol 3350 17 GRAMS powder in packet
17 grams PO HS Qty: 1 0RF
docusate sodium 100 mg capsule
100 mg PO BID PRN (Reason: Constipation)
ascorbic acid (vitamin C) [Vitamin C] 500 mg Tablet
500 mg PO DAILY
vitamin B complex Capsule
1 cap PO DAILY
magnesium oxide 140 mg Capsule
1 mg PO
loratadine [Claritin] 10 mg Tablet
10 mg PO DAILY PRN (Reason: seasonal allergies )
krill ttb-[id number]-3-dha-epa 45-45 mg Capsule
1 cap PO
Praluent Pen 75 mg/mL pen injector
75 mg SC Q14D
Discharge Orders:
Discharge Patient (As Directed); Ordered 05/25/24
Ordered By: Markos Benson
Care Plan Goals
Care Plan Goals:
Problem: Readiness for enhanced knowledge related to diagnosis and treatment plan
Goal: Understand your diagnosis and treatment plan needs, including medications if applicable.
Instructions: Know your diagnosis, underlying causes and treatment plan options, including medications if applicable. Consult with your health care team to learn about your diagnosis and treatment plan, including medications if applicable.
Discharge Date and Time
Print Language: SAMMARINESE
[2024-05-25 12:07] VITALS: BP 135/67
--- NOTE | 2024-05-25 13:43 | PTCARENOTE ---
Discussed D/C instructions w/patient; Pt left w/personal belongings including cell phone, tablet, & marriage counselor minister. Pt's IV line & communications station manager D/C'd & pt transported out by this RN via wheelchair. Pt driven home by her neighbor.
--- NOTE | 2024-05-25 14:10 | PN.CDI ---
CDI
- -
CDI:
Physician Documentation Request
Admit Date: 05/22/24 17:05
Dear Doctor Marcelino,
Patient presented to ED with complains of sudden onset of left sided chest pain.
05/24 cardiac catheterization showed Nonobstructive coronary disease.
Troponin elevated and felt to be likely nonischemic myocardial injury.
After careful study, what is the likely etiology of the patient's chest pain:
Use of terms such as suspected, likely, concern for, or probable (associated with a specific diagnosis that is being evaluated, monitored, or treated as if it exists) are acceptable and can be coded in the inpatient setting, when documented at the
time of discharge.
Thank you,
Meron Schreiber RN, BSN
CDI Specialist
tiger text
Please use your independent medical judgment in providing your response.
== END 2024-05-25 13:45 | disposition home health service (06) | DRG 287 ==
LOC: IVU 17:05
PROVIDERS: Clinical Nurse Specialist Family Health; Internal Medicine Interventional Cardiology; ADMITTING PHYSICIAN Internal Medicine; ATTENDING PHYSICIAN Hospitalist; CONSULT PHYSICIAN Internal Medicine Cardiovascular Disease; EMERGENCY PHYSICIAN Emergency Medicine; FAMILY PHYSICIAN Nurse Practitioner Family
PROC: B2111ZZ Fluoroscopy of Multiple Coronary Arteries using Low Osmolar Contrast (ICD-10-PCS; 2024-05-24)
PROC: B2151ZZ Fluoroscopy of Left Heart using Low Osmolar Contrast (ICD-10-PCS; 2024-05-24)
PROC: 4A023N7 Measurement of Cardiac Sampling and Pressure, Left Heart, Percutaneous Approach (ICD-10-PCS; 2024-05-24)
DX: I25.10 Atherosclerotic heart disease of native coronary artery without angina pectoris (principal); I5A Non-ischemic myocardial injury (non-traumatic); K21.9 Gastro-esophageal reflux disease without esophagitis; E78.00 Pure hypercholesterolemia, unspecified; E66.09 Other obesity due to excess calories; Z68.34 Body mass index [BMI] 34.0-34.9, adult
CPT/HCPCS: 71046; 80053; 80061; 83735; 83880; 84484; 85025; 85027; 85347; 85730; 93005; 93306; 93458; 93571; 96365; 97161; 97165; 99284; C1769; C1894; Q9967

== ENCOUNTER → 2024-06-12 07:02 | Outpatient (REF) | payer MEDICARE, OTHER, SELFPAY ==
[2024-06-12 08:04] LABS: % Basophils 0.6 % (0-2); % Immature Granulocytes 1.1 % (0-0.5); % Lymphocytes 25.9 % (20.5-51.1); % Monocytes 10.7 % (1.7-9.3); % Neutrophils 57.7 % (42.2-75.2); Absolute Eosinophils 0.3 10^3/uL (0-0.7); Absolute Immature Granulocytes 0.1 10^3/uL (0-0.05); Absolute Lymphocytes 1.7 10^3/uL (1.2-3.4); Absolute Monocytes 0.7 10^3/uL (0.1-0.6); Absolute Neutrophils 3.7 10^3/uL (1.4-6.5); Hematocrit 42.7 % (37.0-47.0); Hemoglobin 14.3 g/dL (12.0-16.0); Mean Corp Hgb Conc. 33.5 g/dL (33.0-37.0); Mean Corpuscular Hgb 29.7 pg (27.0-31.0); Mean Corpuscular Volume 88.6 fL (81.0-99.0); Mean Platelet Volume 10.4 fL (7.4-10.4); Nucleated Red Blood Cells % 0 %; Platelet Count 197 10^3/uL (130-400); Red Blood Cell Count 4.82 10^6/uL (4.20-5.40); Red Cell Dist. Width 18.7 % (11.5-14.5); White Blood Cell Count 6.5 10^3/uL (4.8-10.8)
[2024-06-12 08:35] LABS: ALT (SGPT) 22 U/L (0-35); AST (SGOT) 27 U/L (14-36); Albumin 4.4 g/dl (3.5-5.0); Alkaline Phosphatase 82 U/L (38-126); Blood Urea Nitrogen 22 mg/dl (7-17); Calcium 10.3 mg/dl (8.4-10.2); Carbon Dioxide 26 mmol/L (22-30); Chloride 104 mmol/L (98-107); Glucose 93 mg/dl (70-99); Iron 88 ug/dl (37-170); Potassium 4.8 mmol/L (3.5-5.1); Sodium 142 mmol/L (135-145); Total Protein 6.8 g/dl (6.3-8.2); eGFR 49.86
[2024-06-12 08:44] LABS: Percent Saturation 32 % (20-50); Total Iron Binding Capacity 270 ug/dl (265-497)
[2024-06-12 09:04] LABS: Ferritin 93.1 ng/ml (11.1-264.0)
[2024-06-12 09:39] LABS: Intact PTH 46.7 pg/ml (13.6-85.8)
== END ==
LOC: REG 07:02
PROVIDERS: ATTENDING PHYSICIAN Nurse Practitioner Family; REFERRING PHYSICIAN Internal Medicine Cardiovascular Disease
DX: R79.89 Other specified abnormal findings of blood chemistry (principal); N28.9 Disorder of kidney and ureter, unspecified; E61.1 Iron deficiency
CPT/HCPCS: 36415; 80053; 82728; 83540; 83550; 83970; 84155; 84165; 85025

== ENCOUNTER → 2024-09-24 06:16 | Outpatient (REF) | payer MEDICARE, OTHER, SELFPAY ==
[2024-09-24 07:39] LABS: % Basophils 0.5 % (0-2); % Immature Granulocytes 0.4 % (0-0.5); % Lymphocytes 25.2 % (20.5-51.1); % Monocytes 11.4 % (1.7-9.3); % Neutrophils 57.5 % (42.2-75.2); Absolute Eosinophils 0.3 10^3/uL (0-0.7); Absolute Lymphocytes 1.4 10^3/uL (1.2-3.4); Absolute Monocytes 0.6 10^3/uL (0.1-0.6); Absolute Neutrophils 3.2 10^3/uL (1.4-6.5); Hematocrit 44.3 % (37.0-47.0); Hemoglobin 14.8 g/dL (12.0-16.0); Mean Corp Hgb Conc. 33.4 g/dL (33.0-37.0); Mean Corpuscular Hgb 31.1 pg (27.0-31.0); Mean Corpuscular Volume 93.1 fL (81.0-99.0); Mean Platelet Volume 10.5 fL (7.4-10.4); Nucleated Red Blood Cells % 0 %; Platelet Count 176 10^3/uL (130-400); Red Blood Cell Count 4.76 10^6/uL (4.20-5.40); Red Cell Dist. Width 12.7 % (11.5-14.5); White Blood Cell Count 5.6 10^3/uL (4.8-10.8)
[2024-09-24 08:17] LABS: ALT (SGPT) 22 U/L (0-35); AST (SGOT) 27 U/L (14-36); Albumin 4.3 g/dl (3.5-5.0); Alkaline Phosphatase 89 U/L (38-126); Blood Urea Nitrogen 24 mg/dl (7-17); Calcium 9.5 mg/dl (8.4-10.2); Carbon Dioxide 28 mmol/L (22-30); Chloride 106 mmol/L (98-107); Glucose 91 mg/dl (70-99); HDL Cholesterol 95 mg/dl; LDL Cholesterol, Calculated 52 mg/dl; Potassium 4.3 mmol/L (3.5-5.1); Sodium 142 mmol/L (135-145); Total Bilirubin 1.2 mg/dl (0.2-1.3); Total Cholesterol 163 mg/dl (50-199); Total Protein 6.6 g/dl (6.3-8.2); Triglyceride 81 mg/dl (10-149); Very Low Density Lipoprotein 16 mg/dl (0-30)
== END ==
LOC: REG 06:16
PROVIDERS: ATTENDING PHYSICIAN Internal Medicine Cardiovascular Disease; FAMILY PHYSICIAN Nurse Practitioner Family
DX: I35.1 Nonrheumatic aortic (valve) insufficiency (principal); E78.2 Mixed hyperlipidemia
CPT/HCPCS: 36415; 80053; 80061; 85025

== ENCOUNTER → 2024-11-10 08:06 | Outpatient (REF) | payer MEDICARE, OTHER, SELFPAY | LOC: RAD 08:06 | PROVIDERS: ATTENDING PHYSICIAN Nurse Practitioner Family | DX: M79.604 Pain in right leg (principal); M79.605 Pain in left leg | CPT/HCPCS: 93970 ==

== ENCOUNTER → 2024-11-23 06:56 | Outpatient (REF) | payer MEDICARE, OTHER, SELFPAY | LOC: PAVMRI 06:56 | PROVIDERS: ATTENDING PHYSICIAN Physician Assistant Surgical; FAMILY PHYSICIAN Nurse Practitioner Family | DX: M54.50 Low back pain, unspecified (principal) | CPT/HCPCS: 72148 ==

== ENCOUNTER 2025-03-15 08:25 | Emergency (ER) | payer MEDICARE, OTHER, SELFPAY ==
[2025-03-15] VITALS (8 sets, daily range): BP systolic 139–168; BP diastolic 69–85; PULSE 73–79; BMI 36.4
--- NOTE | 2025-03-15 08:35 | ED.GENMED ---
History of Present Illness
General
Chief Complaint: Fainting Sensation
Time Seen by Provider: 03/15/25 08:26
History of Present Illness
History of Present Illness:
84-year-old female presents to the emergency department for evaluation of a near syncopal event that occurred while finishing up eating breakfast at her dining table this morning. She states that she became profoundly lightheaded and felt as though
she might pass out, the episode lasted approximately 15 minutes. Since has any recent medication changes, recent URI or viral syndrome, no associated palpitations or chest pain. Currently feels back to baseline with no complaints.
Past History
Past History
ED Past Medical History: GERD, Hypercholesterolemia and Other (herpes simplex on Valcyclovir)
ED Past Surgical History: Appendectomy, Gynecological (hysterectomy), Orthopedic (L5-S1 intralaminar epidural steroids, replacements bilaterally) and Other (uvulectomy)
Social History
Tobacco: Non-smoker
Alcohol: Other
Drug: None
Personal: Other
Living: other
Employment: Other
Family History
Family History: CAD
Review of Systems
Review of Systems
Allergies reviewed?: Yes
All Other Systems: ROS reviewed and negative except as documented in HPI and ROS
Phy Exam
Physical Exam
Physical Exam:
GEN: Well appearing, NAD, WDWN
HEENT: Oral mucosa moist, no scleral icterus, no nasal congestion
Cardiac: Regular rate and rhythm, no auscultated murmur
Lung: No respiratory distress, no tachypnea, lungs clear to auscultation bilaterally
MSK: No gross deformity or injuries
Skin: Good color, no pallor or jaundice, no rashes
Neuro: AO x3; CN II-XII grossly intact. BUE strength 5/5 in all sood, sensation intact and symmetric. BLE strength 5/5 in all sood, sensation intact and symmetric
Psych: Calm, cooperative
Course
Orders/Labs/Results
Orders:
Orders
03/15/25 08:30
Electrocardiogram (*1) Urgent
Reason for Study: Chest Pain
Cardiac Monitoring- Treatment ONCE
EKG- Treatment ONCE
IV Insert/Care/Rem.- Treatment PRN
03/15/25 08:33
Complete Blood Count/With Diff Urgent
Comprehensive Metabolic Panel Urgent
Troponin I Urgent
03/15/25 09:22
Orthostatic VS- Treatment ONCE
03/15/25 09:44
Urinalysis Reflex To Culture Urgent
Date Specimen was Collected: 03/15/25
Time Specimen was Collected: 09:34
Urine Microscopic Reflex Cult Urgent
Urine Culture Urgent
LUIS MANUEL Source: U
Specimen Description:
Date Specimen was Collected: 03/15/25
Time Specimen was Collected: 09:34
Abnormal Lab Results
03/15/25 03/15/25
08:33 09:44
Absolute Monos (auto) 0.7 H 10^3/uL
(0.1-0.6)
Chloride 109 H mmol/L
(98-107)
BUN 26 H mg/dl
(7-17)
Total Bilirubin 1.7 H mg/dl
(0.2-1.3)
Leukocyte Esterase Rfl 3+ A
(Negative)
Urine Bacteria (Reflex) Few A
(Negative)
Urine Albumin (Reflex) 1+ A
(Neg - Trace)
03/15/25 08:33
03/15/25 08:33
Vital Signs
Initial and Last Documented VS:
Initial Vital Signs
BP
160/85
03/15/25 08:31
Last Documented Vital Signs
Temp Pulse Resp BP Pulse Ox
97.7 F 71 31 139/71 95
03/15/25 09:27 03/15/25 10:00 03/15/25 10:00 03/15/25 10:00 03/15/25 10:00
MDM/Problems Addressed
MDM/Problems Addressed:
Unclear etiology to the patient's near syncope. Workup was reassuring in the ED, she has no lower urinary tract voiding symptoms however if urine culture positive would consider treatment.
Comment
Comment:
EKG independently interpreted by me shows a normal sinus rhythm with no ST changes concerning for ischemia
*Critical Care Note
Total Time (30-74mins, 75-104mins- exclusive of procedures): Not Applicable
ED Attending Note
-
Portions of this chart may have been created with voice recognition software.� Occasional wrong word or��sound alike� substitutions may have occurred due to the inherent limitations of voice recognition software.
Discharge Plan
Departure
Patient Disposition: Home (Routine Discharge)
Date of Disposition: 03/15/25
Time of Disposition: 10:09
Patient with high blood pressure during this ER visit?: No
Discharge Problem:
Near syncope
Instructions: Near Fainting (DC)
Prescriptions:
No Action
omeprazole 40 MG capsule,delayed release(DR/EC)
40 mg PO DAILY
zinc sulfate 220 MG capsule
220 mg PO DAILY
cholecalciferol (vitamin D3) 1,000 UNITS tablet
1,000 units PO DAILY
polyethylene glycol 3350 17 GRAMS powder in packet
17 grams PO HS Qty: 1 0RF
docusate sodium 100 mg capsule
100 mg PO BID PRN (Reason: Constipation)
ascorbic acid (vitamin C) [Vitamin C] 500 mg Tablet
500 mg PO DAILY
vitamin B complex Capsule
1 cap PO DAILY
magnesium oxide 140 mg Capsule
1 mg PO
loratadine [Claritin] 10 mg Tablet
10 mg PO DAILY PRN (Reason: seasonal allergies )
krill [id number]-[id number]-9-dha-epa 45-45 mg Capsule
1 cap PO
Praluent Pen 75 mg/mL pen injector
75 mg SC Q14D
clopidogrel 75 mg Tablet
75 mg PO DAILY 30 Days Qty: 30 0RF
aspirin 81 mg Tablet,Delayed Release (Dr/Ec)
81 mg PO DAILY Qty: 30 0RF
metoprolol succinate 25 mg Tablet Extended Release 24 Hr
25 mg PO DAILY 30 Days Qty: 30 0RF
Referrals:
Damari Monte CRNP [Family Provider, Family Practice]
Jason Zhao MD [Active, Cardiology]
Activity Restrictions/Additional Instructions:
Follow up with cardiology if symptoms re-occur
Interventions
Interventions:
*Risk Screen - Suicide Last Done: 03/15/25 08:31
*General Assessment Last Done: 03/15/25 10:41
*Neglect/Abuse Screening Last Done: 03/15/25 08:31
*ED- Fall Risk Assessment Last Done: 03/15/25 10:41
*ED COVID-19 Vaccine History Last Done: 03/15/25 10:41
*Nursing Disposition Last Done: 03/15/25 10:41
ED- Cardiac Assessment Last Done: 03/15/25 10:41
ED- Neurological Assessment Last Done: 03/15/25 10:41
Discharge Date and Time
Discharge Date/Time: 03/15/25 10:43
Print Language: URDU
[2025-03-15 08:47] LABS: % Basophils 0.4 % (0-2); % Eosinophils 1.9 % (0-6); % Immature Granulocytes 0.5 % (0-0.5); % Lymphocytes 26.7 % (20.5-51.1); % Monocytes 8.2 % (1.7-9.3); % Neutrophils 62.3 % (42.2-75.2); Absolute Eosinophils 0.2 10^3/uL (0-0.7); Absolute Lymphocytes 2.3 10^3/uL (1.2-3.4); Absolute Monocytes 0.7 10^3/uL (0.1-0.6); Absolute Neutrophils 5.3 10^3/uL (1.4-6.5); Hematocrit 42.9 % (37.0-47.0); Hemoglobin 14.7 g/dL (12.0-16.0); Mean Corp Hgb Conc. 34.3 g/dL (33.0-37.0); Mean Corpuscular Hgb 30.9 pg (27.0-31.0); Mean Corpuscular Volume 90.1 fL (81.0-99.0); Mean Platelet Volume 10.4 fL (7.4-10.4); Nucleated Red Blood Cells % 0 %; Platelet Count 196 10^3/uL (130-400); Red Blood Cell Count 4.76 10^6/uL (4.20-5.40); Red Cell Dist. Width 13.7 % (11.5-14.5); White Blood Cell Count 8.5 10^3/uL (4.8-10.8)
[2025-03-15 09:10] LABS: ALT (SGPT) 17 U/L (0-35); AST (SGOT) 21 U/L (14-36); Albumin 4.3 g/dl (3.5-5.0); Alkaline Phosphatase 76 U/L (38-126); Blood Urea Nitrogen 26 mg/dl (7-17); Calcium 9.8 mg/dl (8.4-10.2); Carbon Dioxide 25 mmol/L (22-30); Chloride 109 mmol/L (98-107); Estimated Creatinine Clearance 52 ml/min; Glucose 89 mg/dl (70-99); Potassium 4.2 mmol/L (3.5-5.1); Sodium 140 mmol/L (135-145); Total Bilirubin 1.7 mg/dl (0.2-1.3); Total Protein 6.6 g/dl (6.3-8.2); eGFR > 60.00
[2025-03-15 09:21] LABS: Troponin I < 0.012 ng/ml
[2025-03-15 10:06] LABS: Urine Albumin 1+ (Neg - Trace); Urine Bilirubin Negative (Negative); Urine Character Clear (Clear); Urine Color Yellow; Urine Glucose Negative (Negative); Urine Ketone Negative (Negative); Urine Leukocyte 3+ (Negative); Urine Nitrite Negative (Negative); Urine Occult Blood Negative (Negative); Urine Specific Gravity 1.015 (<1.030); Urine Urobilinogen Negative (Neg - 1+)
[2025-03-15 10:25] LABS: Urine Mucus Few
[2025-03-15 10:27] LABS: Urine Red Blood Cell 0-2 /HPF (0-2)
[2025-03-15 10:28] LABS: Urine Bacteria Few (Negative)
== END 2025-03-15 10:43 | disposition home or self-care (01) ==
LOC: EMR 08:25
PROVIDERS: Physician Assistant; EMERGENCY PHYSICIAN Emergency Medicine; FAMILY PHYSICIAN Nurse Practitioner Family
DX: R55 Syncope and collapse (principal); E78.00 Pure hypercholesterolemia, unspecified; Z90.49 Acquired absence of other specified parts of digestive tract; Z90.710 Acquired absence of both cervix and uterus
CPT/HCPCS: 99284; 80053; 81003; 81015; 84484; 85025; 87086; 93005

== ENCOUNTER → 2025-03-29 08:21 | Outpatient (REF) | payer MEDICARE, OTHER, SELFPAY ==
[2025-03-29 10:15] LABS: ALT (SGPT) 18 U/L (0-35); AST (SGOT) 24 U/L (14-36); Albumin 4.6 g/dl (3.5-5.0); Alkaline Phosphatase 79 U/L (38-126); Blood Urea Nitrogen 23 mg/dl (7-17); Carbon Dioxide 26 mmol/L (22-30); Chloride 109 mmol/L (98-107); Glucose 82 mg/dl (70-99); Potassium 4.6 mmol/L (3.5-5.1); Sodium 142 mmol/L (135-145); Total Bilirubin 1.7 mg/dl (0.2-1.3); eGFR 55.55
[2025-03-29 10:45] LABS: TSH Reflex To Free T4 0.96 uIU/ml (0.47-4.68)
== END ==
LOC: REG 08:21
PROVIDERS: ATTENDING PHYSICIAN Nurse Practitioner Family
DX: E66.09 Other obesity due to excess calories (principal); I12.9 Hypertensive chronic kidney disease with stage 1 through stage 4 chronic kidney disease, or unspecified chronic kidney disease; N18.31 Chronic kidney disease, stage 3a; E03.9 Hypothyroidism, unspecified; E78.2 Mixed hyperlipidemia
CPT/HCPCS: 36415; 80053; 84443

== ENCOUNTER → 2025-05-30 13:34 | Outpatient (REF) | payer MEDICARE, OTHER, SELFPAY | LOC: WDC 13:34 | PROVIDERS: ATTENDING PHYSICIAN Nurse Practitioner Family | DX: M81.0 Age-related osteoporosis without current pathological fracture (principal); Z12.31 Encounter for screening mammogram for malignant neoplasm of breast | CPT/HCPCS: 77063; 77067; 77080 ==

== ENCOUNTER → 2025-09-20 11:47 | Outpatient (REF) | payer MEDICARE, OTHER, SELFPAY ==
[2025-09-20 12:27] LABS: Hematocrit 41.1 % (37.0-47.0); Hemoglobin 14.0 g/dL (12.0-16.0); Mean Corp Hgb Conc. 34.1 g/dL (33.0-37.0); Mean Corpuscular Volume 90.9 fL (81.0-99.0); Nucleated Red Blood Cells % 0 %; Platelet Count 203 10^3/uL (130-400); Red Cell Dist. Width 13.3 % (11.5-14.5)
[2025-09-20 16:06] LABS: ALT (SGPT) 17 U/L (0-35); AST (SGOT) 25 U/L (14-36); Albumin 4.3 g/dl (3.5-5.0); Alkaline Phosphatase 86 U/L (38-126); Blood Urea Nitrogen 20 mg/dl (7-17); Calcium 9.8 mg/dl (8.4-10.2); Carbon Dioxide 28 mmol/L (22-30); Chloride 105 mmol/L (98-107); Glucose 82 mg/dl (70-99); Potassium 4.2 mmol/L (3.5-5.1); Sodium 138 mmol/L (135-145); Total Protein 7.0 g/dl (6.3-8.2); eGFR > 60.00
[2025-09-20 16:46] LABS: TSH 0.71 uIU/ml (0.47-4.68)
== END ==
LOC: REG 11:47
PROVIDERS: ATTENDING PHYSICIAN Dermatology
DX: D89.89 Other specified disorders involving the immune mechanism, not elsewhere classified (principal)
CPT/HCPCS: 36415; 80053; 84439; 84443; 85025